=== PATIENT | male | born 1965 | race Caucasian/White ===

== ENCOUNTER 2016-10-28 08:04 | Outpatient (CLI) | payer BC ==
[~2016-10-28] VITALS: Ht 175.3 cm; Wt 100.0 kg
--- NOTE | ~2016-10-28 | HEMODYNAMI ---
PATIENT:RAMU DOHERTY II MEDICAL RECORD: [id number] : 67 LOCATION:[facility] ADMISSION DATE: 10/28/16 Generatedon:10/28/201612:56 Patient name: RAMU DOHERTY Patient #: [id number] SSN: D OB: 1965 Date of study: 10/28/2016 Page: Of Hemodynamic Procedure Report Patient Data Patient Demographics Procedure consent was obtained First Name: RAMU Gender: Male Last Name: BESSY Suffix: II Middle Initial: TAMIKO : 1965 Patient #: [id number] Age: 51 year(s) Race: Additional ID: [id number] Contact details Address: [address] [place] [address] State: [place] City: [place] Zip code: [address] Past Medical History Allergies: No known allergies Admission Admission Data Admission Date: 10/28/2016 Admission Time: 8:04 Admit Source: Other Insurance Payor: Private health insurance Height (in.): 69 BSA: 2.15 (m2) Height (cm.): 175.26 BMI: 32.56 (kg/m2) Weight (lbs.): 220.46 Weight (kg.): 100 Lab Results Lab Result Date: 10/28/2016 Lab Result Time: 10:55 Biochemistry Name Units Result Min Max BUN mg/dl 13 --(--*-)-- 7 18 Creatinine mg/dl 1.1 --(--*-)-- 0.6 1.3 CBC Name Units Result Min Max Hematocrit % 46.6 --(-*--)-- 42 54 Hemoglobin g/dl 15.8 --(--*-)-- 13.5 17.5 Procedure Procedure Types Cath Procedure Diagnostic Procedure [facility] w/Coron[facility] Procedure Description Procedure Date Procedure Date: 10/28/2016 Procedure Start Time: 12:46 Procedure End Time: 12:55 Procedure Staff Name Function Colin Dias MD Performing Physician Linda Cote RN Nurse John Cochran RN Dewer Timur Valentine RT Monitor Thalia Tucker RT Scrub Procedure Data Cath Procedure Fluoroscopy Diagnostic fluoroscopy Total fluoroscopy Time: 2.3 time: 2.3 min min Diagnostic fluoroscopy Total fluoroscopy dose: 513 dose: 513 mGy mGy Contrast Material Contrast Material Type Amount (ml) Isovue 300 52 Entry Location Entry Primary Successful Side Size Upsize Upsize Entry Closure Suarez ccessful Closure Location (Fr) 1 (Fr) 2 (Fr) Remarks Device Remarks Radial Right 6 Fr Mechanical artery Short Compression Estimated blood loss: 5 ml Diagnostic catheters Device Type Used For End Catheter Placement Terumo 5Fr Anatoly 110cm Procedure catheter Cordis Infinity 5Fr JL Procedure 3.5 catheter Procedure Complications No complications Procedure Medications Medication Administration Route Dosage Oxygen NC 2 l/min Heparin Flush Bag added to field 2 bags (1000units/500ml NS) Lidocaine 2% added to field 20 Radial Cocktail added to field 1 syringe (Verapomil 2mg/Nitro 400mcg/Heparin 1500units) Benadryl I.V. 50 mg Versed I.V. 1 mg Fentanyl I.V. 50 mcg Versed I.V. 1 mg Fentanyl I.V. 50 mcg Radial Cocktail I.A. 1 syringe (Verapomil 2mg/Nitro 400mcg/Heparin 1500units) Versed I.V. 1 mg Fentanyl I.V. 50 mcg Fentanyl I.V. 25 mcg Hemodynamics Rest BSA: 2.15 (m2) HGB: 15.8 (g/dl) O2 Consumption: Estimated: 268.54 (ml/min) O2 Co nsumption indexed: Estimated:124.9 (ml/min/m) Heart Rate: 84 (bpm) Snapshots Pre Cath Intra NCS Post Cath Vital Signs Time Heart Resp SPO2 NIBP Rhythm Pain Sedation Rate (ipm) (%) (mmHg) Status Level (bpm) 12:19:39 89 15 97 118/77(91) NSR 0 (11) 10(A) , No pain 12:23:49 76 17 97 120/69(87) NSR 0 (11) 10(A) , No pain 12:27:56 82 16 96 117/76(98) NSR 0 (11) 10(A) , No pain 12:32:00 87 18 96 107/81(97) NSR 0 (11) 10(A) , No pain 12:36:47 82 16 95 117/72(97) NSR 0 (11) 10(A) , No pain 12:40:53 81 18 94 116/72(94) NSR 0 (11) 10(A) , No pain 12:45:01 86 16 94 109/70(83) NSR 0 (11) 10(A) , No pain 12:49:08 93 16 96 106/56(89) NSR 0 (11) 9(A) , No pain 12:53:14 93 16 96 104/66(85) NSR 0 (11) 9(A) , No pain 12:55:46 95 16 95 118/61(78) NSR 0 (11) 9(A) , No pain Medications Time Medication Route Dose Verified Delivered Reason Notes Effectiveness by by 12:20:59 Oxygen NC 2 l/min Colin Linda Per Arun Cote RN physician 12:21:05 Heparin Flush added 2 bags Colin Colin used for Bag to Arun Dias MD procedure (1000units/500ml field NS) 12:21:12 Lidocaine 2% added 20ml Colin Colin used for to vial Arun Dias MD procedure field 12:21:19 Radial Cocktail added 1 Colin Colin used for (Verapomil to syringe Arun Dias MD procedure 2mg/Nitro field 400mcg/Heparin 1500units) 12:21:25 Benadryl I.V. 50 mg Colin Linda Per Arun Cote RN physician 12:42:19 Versed I.V. 1 mg Colin Linda for sedation Arun Cote RN 12:42:25 Fentanyl I.V. 50 mcg Colin Linda for sedation Arun Cote RN 12:43:56 Versed I.V. 1 mg Colin Linda for sedation Arun Cote RN 12:43:58 Fentanyl I.V. 50 mcg Colin Linda for sedation Arun Cote RN 12:45:20 Versed I.V. 1 mg Colin Linda for sedation Arun Cote RN 12:45:26 Fentanyl I.V. 50 mcg Colin Linda for sedation Arun Cote RN 12:47:15 Radial Cocktail I.A. 1 Colin Colin for (Verapomil syringe Arun Dias MD vasodilation 2mg/Nitro 400mcg/Heparin 1500units) 12:47:32 Fentanyl I.V. 25 mcg Colin Mckeon for sedation Arun Cote parking lot laborer Log Time Note 11:30:33 John Cochran RN sent for patient. Start room use. 11:58:54 Informed consent obtained and on chart 11:59:32 Diagnostic Cath status Elective 11:59:39 Time tracking: Regular hours 11:59:43 Plan of Care:Hemodynamics will remain stable., Cardiac rhythm will remain stable., Comfort level will be maintained., Respiratory function will remain adequate., Patient/ family verbilizes understanding of procedure., Procedure tolerated without complication., Recovers from procedure without complications.. 12:03:08 Lab Result : Creatinine 1.1 mg/dl 12:03:08 Lab Result : BUN 13 mg/dl 12:03:08 Lab Result : Hematocrit 46.6 % 12:03:08 Lab Result : Hemoglobin 15.8 g/dl 12:03:17 Admit Source: Other 12:03:22 Patient Height : 175.26 cm 12:03:28 Patient Weight : 100 kg 12:03:37 Insurance Payor : Private health insurance 12:05:48 H&P Date Dictated: 10/28/2016 Within 30 days and on chart., H&P Addendum completed by physician on day of procedure. (MUST COMPLETE FOR ALL OUTPATIENTS). 12:05:59 Patient allergic to No known allergies 12:06:12 ACC Patient presents with Unstable Angina CCS Anginal Class 3--Marked limitation of physical activity, angina occurs with ordinary activity.. 12:12:03 Patient received from Outpatients to CCL 1 Alert and oriented. Tansferred to table in Supine position. 12:12:03 Warm blankets applied, and cristina hugger turned on for patient comfort. 12:12:04 Correct patient and procedure confirmed by team. 12:12:05 ECG and BP/O2 sat monitors applied to patient. 12:12:06 Full Disclosure recording started 12:16:06 Vital chart was started 12:16:50 Baseline sample Acquired. 12:16:55 Rhythm: sinus rhythm 12:16:59 Pre-procedure instructions explained to patient. 12:16:59 Pre-op teaching completed and patient verbalized understanding. 12:17:01 Family in waiting room. 12:17:09 Is the patient allergic to Iodine/contrast media? No. 12:17:26 Is patient on blood thinner?Yes 12:17:29 ACC The patient was administered the following blood thiners within the last 24 hours: ACCPlavix 12:17:31 Patient diabetic? No. 12:17:33 If diabetic: On Metformin? No 12:17:33 ----Pre-sedation anethsthesia assessment.---- 12:17:36 Previous problem with sedation/anesthesia? No ? 12:17:45 Snore? Yes 12:17:47 Sleep apnea? No 12:17:48 Deviated septum? No 12:17:49 Opens mouth fully? Yes 12:17:51 Sticks out tongue? Yes 12:17:57 Airway obstruction? No ? 12:18:09 Dentures? No ? 12:18:41 Pre procedure: right dorsailis pedis pulse 1+ Palpable, but thready & weak; easily obliterated 12:18:43 Modified Alvarez's test Ulnar < 7 seconds 12:18:55 Patient pain scale 0/10 ?. 12:19:01 IV patent on arrival in left antecubital with 0.9% NaCl at 10ml/hr. 12:19:04 Lab results completed and on chart. 12:19:09 Right Radial & Right Groin area was prepped with chlora-prep and draped in sterile fashion 12:19:11 Alarms reviewed by R. N. 12:19:11 Sharps counted by scrub and verified by R.N. 12:20:59 Oxygen 2 l/min NC was given by Linda Cote RN; Per physician; 12:21:05 Heparin Flush Bag (1000units/500ml NS) 2 bags added to field was given by Colin Dias MD; used for procedure; 12:21:12 Lidocaine 2% 20ml vial added to field was given by Colin Dias MD; used for procedure; 12:21:19 Radial Cocktail (Verapomil 2mg/Nitro 400mcg/Heparin 1500units) 1 syringe added to field was given by Colin Dias MD; used for procedure; 12:21:25 Benadryl 50 mg I.V. was given by Linda Cote RN; Per physician; 12::39 Use device set Radial Dx 12::40 Tegaderm 4 x 4 opened to sterile field. 12::42 Acist Manifold opened to sterile field. 12::42 Acist Hand Control opened to sterile field. 12::43 St Dionicio 260cm J .035 wire opened to sterile field. 12::44 Acist Syringe opened to sterile field. 12::44 Cardinal Cath Pack opened to sterile field. 12::45 Bag Decanter opened to sterile field. 12::46 Terumo 6Fr Slender Glidesheath opened to sterile field. 12:29:03 Zero performed for pressure channel P1 12::58 Baseline sample Acquired. 12::34 --------ALL STOP TIME OUT------ 12:41:36 Final Timeout: patient, procedure, and site verified with staff and physician. All members of the team are in agreement. 12::43 Right Radial & Right Groin site verified by team. 12::47 Physical assessment completed. ASA score P 2 - A patient with mild systemic disease as per Colin Dias MD. 12:41:52 Sedation plan: IV Moderate Sedation Versed, Fentanyl 12:42:19 Versed 1 mg I.V. was given by Linda Cote RN; for sedation; 12:42:25 Fentanyl 50 mcg I.V. was given by Linda Cote RN; for sedation; 12:43:56 Versed 1 mg I.V. was given by Linda Cote RN; for sedation; 12:43:58 Fentanyl 50 mcg I.V. was given by Linda Cote RN; for sedation; 12:45:20 Versed 1 mg I.V. was given by Linda Cote RN; for sedation; 12:45:26 Fentanyl 50 mcg I.V. was given by Linda Cote RN; for sedation; 12:46:24 Procedure started. 12:46:31 Local anesthetic to right radial artery with Lidocaine 2% by Colin Dias MD.INITIAL ACCESS ONLY 12:46:50 A 6 Fr Short sheath was inserted into the Right Radial artery 12:47:09 A Terumo 5Fr Anatoly 110cm catheter was advanced over the wire and used for Procedure. 12:47:15 Radial Cocktail (Verapomil 2mg/Nitro 400mcg/Heparin 1500units) 1 syringe I.A. was given by Colin Dias MD; for vasodilation; 12:47:32 Fentanyl 25 mcg I.V. was given by Linda Cote RN; for sedation; 12:48:07 LV gram done using WONG 12:48:10 Injector settings: Ml/sec: 5, Volume: 15, 12:48:23 EF : 55 % 12:48:38 Terumo TR Band Standard opened to sterile field. 12:48:46 RCA angiography performed. 12:49:08 LCA angiography performed. 12:50:23 Catheter exchanged over wire. 12:50:52 A Cordis Infinity 5Fr JL 3.5 catheter was advanced over the wire and used for Procedure. 12:51:51 LCA angiography performed. 12:52:03 Catheter removed. 12:52:15 Sheath removed intact; hemostasis achieved with Mechanical Compression to the Right Radial artery. 12:52:17 Procedure ended.(Physican Out) 12:52:26 Fluoroscopy time 02.30 minutes. 12:52:30 Flurop Dose total: 513 12:52:30 Fluoroscopy dose: 513 mGy 12:52:35 Contrast amount:Isovue 300 52ml. 12:52:36 Sharps counted by scrub and verified by R.N. 12:52:39 TR band inflated with 12cc of air. 12:52:41 Insertion/operative site no bleeding no hematoma. 12:52:48 Post right radial artery:stable, soft, clean and dry 12:52:55 Post Procedure Pulses reassessed and unchanged 12:53:00 Post-procedure physical assessment completed. ASA score P 2 - A patient with mild systemic disease as per Colin Dias MD. 12:53:04 Post procedure rhythm: unchanged. 12:53:07 Estimated blood loss: 5 ml 12:53:08 Post procedure instruction explained to patient.Patient verbalizes understanding. 12:53:08 Patient needs reinforcement of post procedure teaching. 12:53:34 Procedure and supply charges have been captured, reviewed, submitted and are correct. 12:53:38 Procedure Complication : No complications 12:53:42 Vital chart was stopped 12:53:43 See physician's report for complete and final results. 12:54:53 Report given to Post Procedure Room. 12:55:06 Patient transfered to Post Procedure Room with Stretcher. 12:55:09 Procedure ended. 12:55:09 Full Disclosure recording stopped 12:55:55 End room use (Document Last) Device Usage Item Name Manufacture Quantity Catalog Hospital Part Current Minimal Lot# / Number Charge Number Stock Stock Serial# Code Tegaderm 4 3M 1 [id number] 746872 095022 5 x 4 Acist Acist 1 72362 179220 539267 846066 5 Manifold [employer] Inc Acist Hand Acist 1 70521 910573 647693 496009 5 Control Medical [employer] Inc St Dionicio St Dionicio 1 466123 882706 341426 995938 30 260cm J .035 wire Acist Acist 1 96447 624753 209475 799775 20 Syringe Medical [employer] Inc Cardinal Cardinal 1 [id number] 813735 46759 213705 5 Cath Pack Health Bag Microtek 1 2002S 587787 37339 732638 5 Matrix [employer] Terumo 6Fr Terumo 1 [id number] 663030 274478 159260 40 Slender Glidesheath Terumo 5Fr Terumo 1 40-8152 253192 109669 216163 5 Anatoly 110cm catheter Terumo TR Terumo 1 [id number] 011536 102328 119323 40 Band Standard Cordis Cardinal 1 [id number] 771390 767676 084012 5 linkedü 5Fr JL 3.5 catheter Signature Audit [place] Stage Time Signature Unsigned Intra-Procedure 10/28/2016 Timur Valentine 12:56:22 PM RT(R) Signatures Monitor : Timur Valentine RT Signature : Date : Time : [facility] [address] [place] [address]
[2016-10-28 11:21] LABS: BASOPHILS 0.9 % (0.0-2.0); EOSINOPHILS 8.5 % (0-7); HEMATOCRIT 46.6 % (42.0-54.0); HEMOGLOBIN 15.8 g/dL (13.5-17.5); MCH 28.4 pg (26.0-34.0); MCHC 33.9 g/dL (31.0-37.0); MCV 83.8 fL (80.0-100.0); MONOCYTES 11.7 % (2-11); NEUTROPHILS 40.9 % (40-80); PLATELET COUNT 191 10x3/uL (130-400); RBC 5.56 10x6/uL (4.20-6.10); RDW 13.6 % (11.5-14.5); WBC 5.4 10x3/uL (4.8-10.8)
[2016-10-28 11:23] LABS: CALC OSMOLALITY 276 mosm/kg (275-300); CALCIUM 9.6 mg/dL (8.5-10.1); CARBON DIOXIDE 30.5 mmol/L (21.0-32.0); CHLORIDE - SERUM 102 mmol/L (98-107); CREATININE - SERUM 1.1 mg/dL (0.6-1.3); GLUCOSE 89 mg/dL (74-106); POTASSIUM - SERUM 4.5 mmol/L (3.5-5.1); SODIUM 139 mmol/L (136-145); UREA NITROGEN 13 mg/dL (7-18); eGFR NON AFRICAN AMERICAN 75 mL/min (90-120)
[2016-10-28] MEDS ORDERED: ZESTRIL20 MG PO (11:39)
[2016-10-28] MEDS ORDERED: NIFEDIPINE ER60 MG PO (11:39)
[2016-10-28] MEDS ORDERED: BAYER CHEWABLE81 MG PO (11:40)
[2016-10-28] MEDS ORDERED: PREVACID30 MG PO (11:40)
[2016-10-28] MEDS ORDERED: BUPROPION XL300 MG PO (11:40)
[2016-10-28] MEDS ORDERED: CLARITIN 10 MG10 MG PO (11:40)
[2016-10-28] MEDS ORDERED: PROVIGIL200 MG PO (11:41)
[2016-10-28] MEDS ORDERED: TEST (11:43)
[2016-10-28] MEDS ORDERED: PLAVIX75 MG PO (11:44)
[2016-10-28] MEDS ORDERED: ANASTROZOLE1 MG PO (11:44)
[2016-10-28 11:45] VITALS: BP 111/76; Ht 175.3 cm; Wt 100.0 kg
--- NOTE | 2016-10-28 13:24 | NUR ---
1320 RESTING WITH EYES CLOSED, ROOM AIR W NO DISTRESS. NSR RATE 81 W NO C/O CHEST PAIN. PULSES PALP X4. HOB ELEVATED TO 30DEGREES, SIPPING WATER W NO NAUSEA. DENIES NEEDS AT THIS TIME. AT BEDSIDE.
--- NOTE | 2016-10-28 14:21 | NUR ---
1400 SITTING UP, EATING TURKEY TRAY. ALL VITALS WNL. NSR RATE 81 W NO C/O CHEST PAIN. PULSES PALP X4. R WRIST TR BAND C/D/I WITH NO HEMATOMA OR BLEEDING.
--- NOTE | 2016-10-28 14:31 | NUR ---
3CC AIR REMOVED FROM R WRIST TR BAND, WILL WATCH CLOSELY FOR BLEEDING. VITALS REMAIN STABLE.
--- NOTE | 2016-10-28 14:51 | NUR ---
1440 VAGAL RESPONSE AFTER RELEASING HALF PRESSURE ON R WRIST TR BAND. ELEVATED FEET, APPLIED O2 @ 2L NC, COOL RAGS APPLIED TO HEAD AND NECK, FLUIDS OPENED. PATIENT ALERT AND ORIENTED ENTIRE TIME. SYSTOLIC BP 85/53. REMAINING AIR REMOVED FROM R WRIST TR BAND. WILL MONITOR CLOSELY FOR BLEEDING.
--- NOTE | 2016-10-28 15:24 | NUR ---
1500 PATIENT SYSTOLIC BP 87, NSR RATE 68 W NO C/O CHEST PAIN OR NAUSEA. TR BAND REMOVED FROM R WRIST WITH TEAGADERM APPLIED. SPOKE WITH TAUTH REGARDING PATIENT CONDITION. V/O FOR 200CC NS BOLUS AND MONITOR PATIENT.
--- NOTE | 2016-10-28 15:49 | NUR ---
1540 BP 102/64 IN SITTING POSITION. DENIES NAUSEA OR CHEST PAIN. NSR RATE 81. R WRIST REMAINS C/D/I WITH NO HEMATOMA OR BLEEDING. AT BEDSIDE.
--- NOTE | 2016-10-28 15:55 | NUR ---
SITTING UP ON SIDE OF BED, VITALS REMAIN WNL. NSR RATE 82.
--- NOTE | 2016-10-28 16:03 | NUR ---
PIV REMOVED FROM LEFT HAND WITH BANDAID APPLIED. UP TO BEDSIDE TO DRESS WITH ASSIST FROM .
--- NOTE | 2016-10-28 16:14 | NUR ---
D/C INSTRUCTIONS DISCUSSED WITH PATIENT AND AT BEDSIDE. R WRIST REMAINS C/D/I WITH NO HEMATOMA OR BLEEDING. WHEELED DOWN VIA WHEELCHAIR BY BRANCH B[employer]ING [employer] CLERK TEAM
--- NOTE | 2016-11-04 11:11 | HP ---
PATIENT: RAMU DOHERTY II MEDICAL RECORD: [id number] ACCOUNT: [id number] LOCATION:[facility] : 67 ADMISSION DATE: 10/28/16 HISTORY AND PHYSICAL EXAMINATION DIAGNOSES: 1. Angina. 2. Hypertension. 3. Hyperlipidemia. 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 PHYSICAL EXAMINATION: GENERAL APPEARANCE: Well-nourished, well-developed, appears stated age. Level of distress, comfortable. PSYCHIATRIC: Mental status, alert, normal affect. Orientation, oriented to time, place and person. EYES: Lids and conjunctiva, noninjected. No discharge, no pallor. ENT: Lips, teeth, gums, normal dentition. Oropharynx, no cyanosis, no pallor. NECK: Carotid arteries, bilateral normal upstroke, no bruits, no thrills. JUGULAR VEINS: No jugular venous pressure or distention. CERVICAL LYMPH NODES: Nontender, nonenlarged. THYROID: Not enlarged. Nontender. No nodules. LUNGS: Respiratory effort, unlabored. CHEST: Normal curvature. No thoracic deformity. No chest wall tenderness. Percussion, resonant. Auscultation, clear. No wheezes, no rales, no rhonchi. CARDIOVASCULAR: Precordial exam, nondisplaced. No heaves or pericardial thrills. Rate and rhythm, regular. Heart sounds, normal S1, normal S2. No S3, no gallop, no rub. Systolic murmur, not heard. Diastolic murmur, not heard. EXTREMITIES: No cyanosis, no edema. Peripheral pulses, full and equal in all extremities, except as noted. No bruits appreciated. ABDOMEN: Soft, nondistended. Normal aorta. No bruit. Nontender. No masses. Liver, nontender, no hepatomegaly. Spleen, nontender, no splenomegaly. MUSCULOSKELETAL: No joint tenderness. No joint swelling. No erythema. NEUROLOGICAL: Normal gait, normal strength, normal tone. SKIN: Warm and dry. REVIEW OF SYSTEMS: The patient reports easy bruising but reports no swollen glands. The patient reports no fever, no night sweats, no significant weight gain, no significant weight loss. No significant exercise tolerance. The patient reports no dry eyes, no irritation, no vision change. Patient reports no difficulty hearing and no ear pain. Patient reports no frequent nose bleeds or nose and sinus problems. Patient reports on arm pain on exertion. No shortness of breath while lying down. No history of heart murmur. Patient reports no cough, no wheezing or coughing up blood. Patient reports no abdominal pain, no vomiting. Normal appetite. No diarrhea and not vomiting blood. No nausea and no constipation. Patient reports no incontinence. No difficulty urinating. No hematuria. No increased frequency. Patient reports no muscle aches. No weakness, no arthralgias, no back pain. No swelling of the extremities. Patient reports no abnormal mole, no jaundice, no rashes. Reports no loss of consciousness. No weakness and no numbness. No seizures, dizziness, or headaches. The patient reports no depression, no sleep disturbance, feeling HISTORY AND PHYSICAL [id number] RAMU DOHERTY II safe in a relationship and no alcohol abuse. Patient reports on fatigue. Reports no runny nose or sinus pressure. No itching, no hives, and no frequent sneezing. OVERALL IMPRESSION: Anginal chest discomfort that is increasing in an unstable fashion with abnormal nuclear stress test. We will proceed with coronary angiography. Further care depends upon findings of the angiography. TRANSINT:[id number] Voice Confirmation ID: [id number] DOCUMENT ID: [id number] IAM BAIN MD at 1111 CC: [id number] DICTATION DATE: 10/28/16 0949 TECHNICAL SUPPORT MANAGER: 10/28/16 1019 [facility] CLI 10/28/16 [place] [id number]
--- NOTE | 2016-11-04 11:11 | OP ---
PATIENT NAME: RAMU DOHERTY II MEDICAL RECORD: [id number] :67 LOCATION:D.CAT ADMISSION DATE: SURGEON: IAM BANI MD DATE OF OPERATION: 10/28/2016 PROCEDURES: 1. Left heart catheterization. 2. Selective coronary angiography. 3. Left ventriculogram. INDICATION: Chest pain compatible with angina. PROCEDURE IN DETAIL: After informed consent was obtained and after detailed explanation of risks, benefits as well as alternative therapies, the patient elected to proceed with angiogram and heart catheterization. The right radial area was prepped and draped in normal sterile fashion. The right radial artery was cannulated via modified Seldinger technique with placement of 5-Ivorian sheath. All catheters exchanged through this sheath. FINDINGS: The left ventriculogram was performed in standard 30-degree WONG view, reveals good cardiac wall motion throughout all segments. Overall ejection fraction estimated at 60%. SELECTIVE CORONARY ANGIOGRAPHY: Left main, left anterior descending, left circumflex, and right coronary artery are all smooth-walled vessels with no angiographic evidence of coronary artery disease. OVERALL IMPRESSION: 1. No angiographic evidence of coronary artery disease. 2. Normal left heart pressures. 3. Normal left ventricular systolic function. Chest pain is noncardiac in etiology. No further cardiac workup needs to be ascertained. TRANSINT:[id number] Voice Confirmation ID: [id number] DOCUMENT ID: [id number] IAM BAIN MD at 1111 CC: [id number] DICTATION DATE: 10/28/16 1256 COLOR MAKER DYER: 10/28/16 1451 [facility] CLI 10/28/16 [place] [id number]
== END 2016-10-28 16:16 | disposition home or self-care (01) ==
LOC: D.CATH 08:04
PROVIDERS: Internal Medicine Interventional Cardiology
DX: I20.9 Angina pectoris, unspecified (principal); I10 Essential (primary) hypertension; E78.5 Hyperlipidemia, unspecified; R94.30 Abnormal result of cardiovascular function study, unspecified